=== PATIENT | female | born 1925 | race Caucasian/White ===

== ENCOUNTER 2016-08-01 13:24 | Outpatient (CLI) | payer MEDICARE, BC | END 2016-08-01 13:25 | disposition home or self-care (01) | DRG 552 | LOC: CONVCARE 13:24 | PROVIDERS: ATTEND Orthopaedic Surgery | DX: M54.5 Low back pain (principal) | CPT/HCPCS: 72120 ==

== ENCOUNTER 2017-01-14 11:25 | Inpatient (IN) | payer MEDICARE, BC ==
[2017-01-14] MEDS ORDERED: METOPROLOL TARTRATE 5 MG/5 ML SOL IV ONE ×2 (11:42)
[2017-01-14 12:55] LABS: CALCIUM 9.4 mg/dl (8.5-10.1)
[2017-01-14 13:14] LABS: HEMATOCRIT 42 % (35-47); MEAN CORPUSCULAR HGB CONC 32.9 gm/dl (32.0-36.0); MEAN CORPUSCULAR VOLUME 88 fL (81-99); NEUTROPHILS % (AUTO) 83.9 % (37-80)
[2017-01-14 13:15] LABS: EOSINOPHILS % (AUTO) 1 % (0-9)
[2017-01-14 13:21] LABS: BASOPHILS % (AUTO) 1 % (0-3)
[2017-01-14 14:07] LABS: APPEARANCE,URINE Clear; BILIRUBIN,URINE NEGATIVE (NEGATIVE); COLOR,URINE Yellow; GLUCOSE, URINE (UA) NEGATIVE (NEGATIVE); KETONES,URINE TRACE (NEGATIVE); LEUKOCYTE ESTERASE ,URINE NEGATIVE (NEGATIVE); NITRATE,URINE NEGATIVE (NEGATIVE); OCCULT BLOOD,URINE NEGATIVE (NEG-TRACE); PH,URINE 5.5; UROBILINOGEN,URINE 0.2 (0.2-1.0 EU)
[2017-01-14 14:23] LABS: RBC,URINE 0-1 (0-3AV/HPF); WBC,URINE 0-1 (0-5AV/HPF)
[2017-01-14] MEDS ORDERED: LORAZEPAM 2 MG/ML SOL IV PRN (20:00)
[2017-01-15] MEDS: SODIUM CHLORIDE 0.9% FLUSH 10 ML SOL IV PRN ×3 (00:03→21:55)
[2017-01-15] MEDS: MORPHINE SULFATE 10 MG/ML SOL IV PRN ×4 (06:06→13:32)
[2017-01-15 16:17] VITALS: RESP 16
[2017-01-15] MEDS: MORPHINE SULFATE 20 MG/1 ML SOL PO PRN ×3 (16:35→21:51)
[2017-01-16] MEDS: MORPHINE SULFATE 20 MG/1 ML SOL PO PRN ×4 (03:23→09:43)
[2017-01-16 06:18] VITALS: BP 121/55; PULSE 64; TEMP 98.5; O2SAT 85
[2017-01-16] MEDS ORDERED: MORPHINE SULFATE 10 MG/ML SOL ONE (09:39)
== END 2017-01-16 10:20 | disposition hospice, inpatient (51) | DRG 65 ==
LOC: ED 11:25 → UNDOADMIN 13:54 → ACUTE CARE 13:54
PROVIDERS: ADMIT Family Medicine; ATTEND Family Medicine
DX: I63.511 Cerebral infarction due to unspecified occlusion or stenosis of right middle cerebral artery (principal); R40.2222 Coma scale, best verbal response, incomprehensible words, at arrival to emergency department; G81.94 Hemiplegia, unspecified affecting left nondominant side; R29.810 Facial weakness; R47.01 Aphasia; R29.731 NIHSS score 31; R40.2362 Coma scale, best motor response, obeys commands, at arrival to emergency department; R40.2142 Coma scale, eyes open, spontaneous, at arrival to emergency department; R13.10 Dysphagia, unspecified; S82.892A Other fracture of left lower leg, initial encounter for closed fracture
CPT/HCPCS: 36415; 70450; 71010; 73620; 80048; 81001; 85025; 85610; 85730; 93005; 96374; 99291; J2060; J2270